=== PATIENT | male | born 1950 | race Caucasian/White ===

== ENCOUNTER 2022-04-26 09:45 | Outpatient (CLI) | payer MEDICARE, BC | END 2022-04-26 23:59 | disposition home or self-care (01) | LOC: RAD 09:45 | PROVIDERS: ATTEND Nurse Practitioner Primary Care | DX: Z01.810 Encounter for preprocedural cardiovascular examination (principal) | CPT/HCPCS: 93005 ==